=== PATIENT | female | born 1960 | race Caucasian/White ===

== ENCOUNTER 2017-10-07 20:39 | Emergency (ER) | payer BC, OTHER ==
[2017-10-07 20:40] VITALS: BMI 24.5
[2017-10-07 22:53] VITALS: TEMP 98.5
[2017-10-07] MEDS ORDERED: HYDROmorphone 1 mg/ml ISec IVP STA (23:40)
[2017-10-07] MEDS ORDERED: Sodium Chloride 0.9% 2,000 ML IV STA (23:40)
--- NOTE | 2017-10-07 23:55 | ED PDOC ---
Arrival/HPI - General Chief Complaint: Abdominal Pain Time Seen by Provider: 10/07/17 22:58 Historian: Patient - History of Present Illness Narrative History of Present Illness (Text): 10/07/17 23:55 A 57 year old female, whose past medical history includes cholecystectomy ( about 20 years ago), hyperlipidemia and hysterectomy, presents to the emergency department complaining of abdominal pain that started about 07:00 this morning and vomiting during the day. Patient reports more than 10 episodes of vomiting. Notes diarrhea after eating lunch. Patient reports chills but denies any other complaints at this time. Symptom Onset: Sudden Symptom Course: Unchanged Activities at Onset: Rest Context: Home Past Medical History - Provider Review Nursing Documentation Reviewed: Yes - Tetanus Immunization Tetanus Immunization: Unknown - Cardiac Hx Hypertension: Yes - Pulmonary Hx Asthma: Yes - Endocrine/Metabolic Other/Comment: BORDERLINE DM - Hematological/Oncological Hx Cancer: Yes (ovarian) - Gastrointestinal Hx Gall Bladder Disease: Yes - Psychiatric Hx Anxiety: Yes Hx Substance Use: No - Surgical History Hx Cholecystectomy: Yes Hx Hysterectomy: Yes Hx Orthopedic Surgery: Yes Hx Tonsillectomy: Yes - Suicidal Assessment Feels Threatened In Home Enviroment: No Family/Social History - Physician Review Nursing Documentation Reviewed: Yes Family/Social History: No Known Family HX Smoking Status: Never Smoked Hx Alcohol Use: Yes Frequency of alcohol use: Socially Hx Substance Use: No Hx Substance Use Treatment: No Allergies/Home Meds Allergies/Adverse Reactions: Allergies No Known Allergies Allergy (Verified 10/07/17 22:54) Home Medications: Home Meds Medication Instructions Recorded Confirmed Gabapentin [Neurontin] 300 mg PO TID 10/07/17 10/07/17 Ibuprofen [Motrin Tab] 800 mg PO Q6 PRN 10/07/17 10/07/17 Review of Systems - Physician Review All systems were reviewed & negative as marked: Yes - Review of Systems Constitutional: Other (chills) Gastrointestinal: Abdominal Pain, Diarrhea, Vomiting Physical Exam Vital Signs Reviewed: Yes Vital Signs Temp Pulse Resp BP Pulse Ox 10/08/17 01:41 79 18 127/77 96 10/07/17 23:59 94 H 20 113/82 97 10/07/17 22:46 98.5 F 101 H 19 125/84 100 Temperature: Afebrile Blood Pressure: Normal Pulse: Tachycardic Respiratory Rate: Normal Appearance: Positive for: Well-Appearing, Non-Toxic, Comfortable Pain Distress: None Mental Status: Positive for: Alert and Oriented X 3 - Systems Exam Head: Present: Atraumatic, Normocephalic Pupils: Present: PERRL Extroacular Muscles: Present: EOMI Conjunctiva: Present: Normal Mouth: Present: Moist Mucous Membranes Neck: Present: Normal Range of Motion Respiratory/Chest: Present: Clear to Auscultation, Good Air Exchange. No: Respiratory Distress, Accessory Muscle Use Cardiovascular: Present: Regular Rate and Rhythm, Normal S1, S2. No: Murmurs Abdomen: Present: Tenderness (diffuse), Other (exaggerated bowel sounds). No: Distention, Peritoneal Signs Back: Present: Normal Inspection Upper Extremity: Present: Normal Inspection. No: Cyanosis, Edema Lower Extremity: Present: Normal Inspection. No: Edema Neurological: Present: GCS=15, CN II-XII Intact, Speech Normal Skin: Present: Warm, Dry, Normal Color. No: Rashes Psychiatric: Present: Alert, Oriented x 3, Normal Insight, Normal Concentration Medical Decision Making ED Course and Treatment: 10/07/17 23:53 Impression: A 57 year old female with abdominal pain, vomiting and diarrhea. Plan: -- labs -- Dilaudid, Zofran, Toradol, IV fluids -- Reassess and disposition Progress Notes: 10/08/17 02:58 FEELING MUCH BETTER ABLE TO TOLERATE PO ABDOMEN NON TENDER WILL DC HOME WITH ZOFRAN Re-evaluation Time: 02:59 - Lab Interpretations Lab Results: 10/07/17 23:40 10/07/17 23:40 Lab Results 10/07/17 23:40: Sodium 139, Potassium 4.0, Chloride 105, Carbon Dioxide 21, Anion Gap 17, BUN 13, Creatinine 0.7, Est GFR ( Amer) > 60, Est GFR (Non- Af Amer) > 60, Random Glucose 107, Calcium 10.3, Total Bilirubin 1.6 H, Direct Bilirubin 0.5 H, AST 26, ALT 50, Alkaline Phosphatase 67, Total Protein 8.3, Albumin 4.5, Globulin 3.8, Albumin/Globulin Ratio 1.2, Lipase 55 10/07/17 23:40: PT 12.2, INR 1.07 10/07/17 23:40: WBC 6.0 D, RBC 5.25, Hgb 15.1, Hct 45.7, MCV 87.0, MCH 28.8, MCHC 33.0, RDW 14.0, Plt Count 202, MPV 10.1, Gran % 83.1 H, Lymph % (Auto) 11.9 L, Adams % (Auto) 4.6, Eos % (Auto) 0.2 L, Baso % (Auto) 0.2, Gran # 5.01, Lymph # 0.7 L, Adams # 0.3, Eos # 0.0, Baso # 0.01 10/07/17 23:18: Influenza Typ A,B (EIA) Negative for flu a/b I have reviewed the lab results: Yes - Medication Orders Current Medication Orders: Discontinued Medications Hydromorphone HCl (Dilaudid) 1 mg IVP STAT STA Stop: 10/07/17 23:41 Last Admin: 10/07/17 23:57 Dose: 1 mg MAR Pain Assessment Document 10/07/17 23:57 GMD (Rec: 10/07/17 23:57 GMD [facility] [id number]) Pain Reassessment Is this a pain reassessment? No Sleep Is patient sleeping during reassessment? No Presence of Pain Presence of Pain Yes Pain Scale Used Pain Scale Used Numeric IVP Administration Document 10/07/17 23:57 GMD (Rec: 10/07/17 23:57 GMD [facility] [id number]) Charges for Administration # of IVP Administrations 1 Sodium Chloride (Sodium Chloride 0.9%) 2,000 mls @ 999 mls/hr IV .Q2H1M STA Stop: 10/08/17 01:40 Last Admin: 10/07/17 23:57 Dose: 999 mls/hr eMAR Start Stop Document 10/07/17 23:57 GMD (Rec: 10/07/17 23:58 GMD [facility] [id number]) Intravenous Solution Start Date 10/07/17 Start Time 23:57 End Date 10/08/17 End time 01:57 Total Infusion Time 120 Ketorolac Tromethamine (Toradol) 30 mg IVP STAT STA Stop: 10/07/17 23:41 Last Admin: 10/07/17 23:57 Dose: 30 mg MAR Pain Assessment Document 10/07/17 23:57 GMD (Rec: 10/07/17 23:57 GMD [facility] [id number]) Pain Reassessment Is this a pain reassessment? No Sleep Is patient sleeping during reassessment? No Presence of Pain Presence of Pain Yes IVP Administration Document 10/07/17 23:57 GMD (Rec: 10/07/17 23:57 GMD [facility] [id number]) Charges for Administration # of IVP Administrations 1 Ondansetron HCl (Zofran Inj) 8 mg IVP STAT STA Stop: 10/07/17 23:41 Last Admin: 10/07/17 23:57 Dose: 8 mg IVP Administration Document 10/07/17 23:57 GMD (Rec: 10/07/17 23:57 GMD [facility] [id number]) Charges for Administration # of IVP Administrations 1 - PA / [employer] / Resident Statement / has reviewed & agrees with the documentation as recorded. - Scribe Statement The provider has reviewed the documentation as recorded by the Scribe Linsey Gama Provider Scribe Attestation: All medical record entries made by the Scribe were at my direction and personally dictated by me. I have reviewed the chart and agree that the record accurately reflects my personal performance of the history, physical exam, medical decision making, and the department course for this patient. I have also personally directed, reviewed, and agree with the discharge instructions and disposition. Disposition/Present on Arrival - Present on Arrival Any Indicators Present on Arrival: No History of DVT/PE: No History of Uncontrolled Diabetes: No Urinary Catheter: No History of Decub. Ulcer: No History Surgical Site Infection Following: None - Disposition Have Diagnosis and Disposition been Completed?: Yes Diagnosis: Viral gastroenteritis Disposition: HOME/ ROUTINE Disposition Time: 03:00 Patient Plan: Discharge Condition: GOOD Discharge Instructions (ExitCare): Gastroenteritis (ED) Additional Instructions: KADE- SORRY YOU ARE SO SICK. REST, PLENTY OF FLUIDS, ZOFRAN ODT for NAUSEA or VOMITING, FOLLOW UP WITH YOUR DOCTOR NEXT WEEK, RETURN TO US IF PROBLEMS. DYLL[address] Referrals: Brittani Batista DO [Primary Care Provider] - Follow up with primary Forms: [employer] (Kyrgyz)
[2017-10-08 00:10] LABS: BASO # 0.01 K/mm3 (0.0-2.0); BASO % 0.2 % (0.0-3.0); EOS % 0.2 % (1.5-5.0); GRAN # 5.01 (1.4-6.5); GRAN % 83.1 % (50.0-68.0); HEMOGLOBIN 15.1 g/dL (12.0-16.0); LYMPH # 0.7 (1.2-3.4); LYMPH % 11.9 % (22.0-35.0); MEAN CORPUSCULAR HEMOGLOBIN 28.8 pg (25.0-35.0); MEAN PLATELET VOLUME 10.1 fl (7.0-11.0); MONO # 0.3 (0.1-0.6); MONO % 4.6 % (1.0-6.0); RBC 5.25 10^6/uL (3.5-6.1)
[2017-10-08 00:18] LABS: ALB/GLOB RATIO 1.2 (1.1-1.8); ALBUMIN 4.5 g/dL (3.0-4.8); ALT/SGPT 50 U/L (7-56); AST/SGOT 26 U/L (14-36); BLOOD UREA NITROGEN 13 mg/dL (7-21); CALCIUM 10.3 mg/dL (8.4-10.5); GFR AFRICAN-AMERICAN > 60; GFR NON-AFRICAN AMERICAN > 60; LIPASE 55 U/L (23-300)
[2017-10-08 00:20] LABS: INR 1.07 (0.93-1.08); PROTHROMBIN TIME 12.2 SECONDS (9.4-12.5)
[2017-10-08 00:23] LABS: BILIRUBIN,DIRECT 0.5 mg/dL (0.0-0.4)
[2017-10-08 01:41] VITALS: O2SAT 96
[2017-10-08 03:02] VITALS: BP 118/79; PULSE 82; RESP 16
== END 2017-10-08 03:06 | disposition home or self-care (01) ==
LOC: ED 20:39
DX: A08.4 Viral intestinal infection, unspecified (principal); I10 Essential (primary) hypertension; E78.5 Hyperlipidemia, unspecified
CPT/HCPCS: 80053; 82248; 83690; 85025; 85610; 87804; 96361; 96374; 96375; 99285; J1170; J1885; J2405; J7040

== ENCOUNTER 2017-10-11 14:20 | Emergency (ER) | payer OTHER ==
[2017-10-11 14:21] VITALS: BMI 24.5
[2017-10-11 14:43] VITALS: TEMP 97.9
[2017-10-11] MEDS ORDERED: Sodium Chloride 0.9% 1,000 ML IV STA (14:56)
[2017-10-11] MEDS ORDERED: Iohexol 240 (50 ml) ONE (15:04)
--- NOTE | 2017-10-11 15:37 | ED PDOC ---
Arrival/HPI - General Chief Complaint: Abdominal Pain Time Seen by Provider: 10/11/17 14:22 Historian: Patient - History of Present Illness Narrative History of Present Illness (Text): 10/11/17 14:42 A 57 year old female, whose past medical history includes HLD, pre-diabetic, hysterectomy, chronic pain to toes (possible nerve problem and takes and cholecystectomy, presents to the emergency department complaining of dizziness, vomiting, and diarrhea for 4 days. Patient reports she visited the ER for similar symptoms and was given Zofran. States she has had no relief of symptoms. Patient went to visit her PMD but was not there. Instead, patient went to Urgent Care and had medication changed to Omeprazole, discontinued Zofran. Patient notes now experiencing black tarry stool and appetite changes. States she has not eaten very much since symptoms began and last food she ate was a slice of pizza today. Patient denies any vomiting at this time, or any other complaints. PMD: Dr. Batista Time/Duration: < week (4 days) Symptom Onset: Sudden Symptom Course: Unchanged Past Medical History - Provider Review Nursing Documentation Reviewed: Yes - Tetanus Immunization Tetanus Immunization: Unknown - Reproductive Menopause: Yes - Cardiac Hx Cardiac Disorders: Yes Hx Hypertension: Yes - Pulmonary Hx Respiratory Disorders: Yes Hx Asthma: Yes - Neurological Hx Neurological Disorder: Yes Other/Comment: NEUROPATHY - HEENT Hx HEENT Disorder: No - Renal Hx Renal Disorder: No - Endocrine/Metabolic Hx Endocrine Disorders: Yes Other/Comment: BORDERLINE DM - Hematological/Oncological Hx Cancer: Yes (ovarian) - Integumentary Hx Dermatological Disorder: No - Musculoskeletal/Rheumatological Hx Musculoskeletal Disorders: No - Gastrointestinal Hx Gastrointestinal Disorders: Yes Hx Gall Bladder Disease: Yes Hx Gastritis: Yes - Genitourinary/Gynecological Hx Genitourinary Disorders: No - Psychiatric Hx Psychophysiologic Disorder: Yes Hx Anxiety: Yes Hx Substance Use: No - Surgical History Hx Cholecystectomy: Yes Hx Hysterectomy: Yes Hx Orthopedic Surgery: Yes Hx Tonsillectomy: Yes - Suicidal Assessment Feels Threatened In Home Enviroment: No Family/Social History - Physician Review Nursing Documentation Reviewed: Yes Family/Social History: No Known Family HX Smoking Status: Never Smoked Hx Alcohol Use: Yes Hx Substance Use: No Hx Substance Use Treatment: No Allergies/Home Meds Allergies/Adverse Reactions: Allergies No Known Allergies Allergy (Verified 10/11/17 14:34) Home Medications: Home Meds Medication Instructions Recorded Confirmed Gabapentin [Neurontin] 300 mg PO TID 10/07/17 10/11/17 Ibuprofen [Motrin Tab] 800 mg PO Q6 PRN 10/07/17 10/11/17 Omeprazole [Omeprazole] 20 mg PO DAILY 10/11/17 10/11/17 Review of Systems - Physician Review All systems were reviewed & negative as marked: Yes - Review of Systems Gastrointestinal: Stool Changes (black tarry stool today), Diarrhea, Vomiting ( episodes of vomiting previously but currently not vomiting) Neurological: Dizziness Physical Exam Vital Signs Reviewed: Yes Vital Signs Temp Pulse Resp BP Pulse Ox 10/11/17 16:05 71 18 112/61 100 10/11/17 14:42 97.9 F 85 16 133/66 99 Temperature: Afebrile Blood Pressure: Normal Pulse: Regular Respiratory Rate: Normal Appearance: Positive for: Well-Appearing Pain Distress: None Mental Status: Positive for: Alert and Oriented X 3 - Systems Exam Head: Present: Atraumatic, Normocephalic Pupils: Present: PERRL Extroacular Muscles: Present: EOMI Conjunctiva: Present: Normal Mouth: Present: Moist Mucous Membranes Neck: Present: Normal Range of Motion Respiratory/Chest: Present: Clear to Auscultation, Good Air Exchange. No: Respiratory Distress, Accessory Muscle Use Cardiovascular: Present: Regular Rate and Rhythm, Normal S1, S2. No: Murmurs Abdomen: Present: Normal Bowel Sounds. No: Tenderness, Distention, Peritoneal Signs Back: Present: Normal Inspection Upper Extremity: Present: Normal Inspection. No: Cyanosis, Edema Lower Extremity: Present: Normal Inspection. No: Edema Neurological: Present: GCS=15, CN II-XII Intact, Speech Normal Skin: Present: Warm, Dry, Normal Color. No: Rashes Psychiatric: Present: Alert, Oriented x 3, Normal Insight, Normal Concentration Medical Decision Making ED Course and Treatment: 10/11/17 14:46 Impression: 57 year old female with diarrhea and dizziness. Normal physical exam ; rectal exam shows Plan: -- Abd/Pelvis CT -- Labs -- Protonix -- IV Fluids -- Occult Blood Urinalysis -- Reassess and disposition Prior Visits: Notes and results from previous visits were reviewed. Patient was last seen in the emergency department on 10/07/2017 for abdominal pain. Patient was d/c home. Progress Notes: 10/11/2017 19:44 Abd/Pelvis CT IMPRESSION: 1. No definite acute intraabdominal abnormality. 2. Adrenal lesion, indeterminate. If no history of malignancy, recommend surgical resection. Otherwise, PET or biopsy is recommended. Consider preoperative biochemical testing to exclude pheochromocytoma. Dictator: Bienvenido Boles MD - Lab Interpretations Lab Results: 10/11/17 15:20 10/11/17 15:20 Lab Results 10/11/17 17:30: Blood Type Confirm O POSITIVE 10/11/17 15:20: Blood Type O POSITIVE, Antibody Screen Negative, BBK History Checked No verified bt 10/11/17 15:20: Sodium 142, Potassium 3.1 L, Chloride 110 H, Carbon Dioxide 23, Anion Gap 12, BUN 13, Creatinine 0.6 L, Est GFR ( Amer) > 60, Est GFR ( Non-Af Amer) > 60, Random Glucose 97, Calcium 9.6, Total Bilirubin 0.7, AST 59 H D, ALT 101 H, Alkaline Phosphatase 49, Total Protein 6.7, Albumin 3.7, Globulin 3.0, Albumin/Globulin Ratio 1.2, Lipase 190 10/11/17 15:20: PT 11.6, INR 1.02 10/11/17 15:20: WBC 3.7 L D, RBC 4.97, Hgb 13.9, Hct 43.8, MCV 88.1, MCH 28.0, MCHC 31.7, RDW 13.7, Plt Count 180, MPV 10.3, Gran % 60.0, Lymph % (Auto) 29.4, Benson % (Auto) 9.0 H, Eos % (Auto) 0.8 L, Baso % (Auto) 0.8, Gran # 2.20, Lymph # 1.1 L, Benson # 0.3, Eos # 0.0, Baso # 0.03 I have reviewed the lab results: Yes - RAD Interpretation Radiology Orders: 10/11/17 14:57 ABDOMEN & PELVIS [ABD PELVIS PO & IV CONTRAST] [CT] Stat - Medication Orders Current Medication Orders: Discontinued Medications Sodium Chloride (Sodium Chloride 0.9%) 1,000 mls @ 999 mls/hr IV .Q1H1M STA Stop: 10/11/17 15:56 Last Admin: 10/11/17 15:43 Dose: 999 mls/hr eMAR Start Stop Document 10/11/17 15:43 RG (Rec: 10/11/17 15:[address] [id number] Intravenous Solution Start Date 10/11/17 Start Time 15:43 Pantoprazole Sodium (Protonix Inj) 40 mg IVP STAT STA Stop: 10/11/17 14:57 Last Admin: 10/11/17 15:22 Dose: 40 mg IVP Administration Document 10/11/17 15:22 RG (Rec: 10/11/17 15:[address] [id number] Charges for Administration # of IVP Administrations 1 Potassium Chloride (Klor-Con 10) 40 meq PO STAT STA Stop: 10/11/17 18:14 Last Admin: 10/11/17 18:52 Dose: 40 meq - PA / [employer]ICIAN / Resident Statement MD/DO has reviewed & agrees with the documentation as recorded. - Scribe Statement The provider has reviewed the documentation as recorded by the Chang Light Provider Scribe Attestation: All medical record entries made by the Chang were at my direction and personally dictated by me. I have reviewed the chart and agree that the record accurately reflects my personal performance of the history, physical exam, medical decision making, and the department course for this patient. I have also personally directed, reviewed, and agree with the discharge instructions and disposition. Disposition/Present on Arrival - Present on Arrival Any Indicators Present on Arrival: No History of DVT/PE: No History of Uncontrolled Diabetes: No Urinary Catheter: No History of Decub. Ulcer: No History Surgical Site Infection Following: None - Disposition Have Diagnosis and Disposition been Completed?: Yes Diagnosis: Lesion of adrenal gland, Gastroenteritis Disposition: HOME/ ROUTINE Disposition Time: 06:00 Patient Plan: Discharge Condition: GOOD Discharge Instructions (ExitCare): Gastroenteritis (ED) Additional Instructions: buddy - Take the copies of your labs and your CT scan to your doctor on Saturday. Return to us if worse or new symptoms occur. You are not bleeding through your stool, I am not certain why your stools are black. Sometimes of you take peptobismol it can turn your stools black. On the CT scan they saw a spot on your adrenal gland that needs worked up as an outpatient. That is why you are going to see your doctor on Saturday. Continue the pepcid and you can use the Zofran if you feel nauseated. Clear liquids or broth this weekend until you see your doctor on saturday. Best- Dr. Samson Coleman Referrals: Brittani Batista V, [Primary Care Provider] - Follow up with primary Forms: [employer] (Kazakh)
[2017-10-11 16:06] VITALS: BP 112/61; PULSE 71; RESP 18; O2SAT 100
[2017-10-11 16:12] LABS: BASO # 0.03 K/mm3 (0.0-2.0); BASO % 0.8 % (0.0-3.0); EOS % 0.8 % (1.5-5.0); GRAN # 2.2 (1.4-6.5); HEMOGLOBIN 13.9 g/dL (12.0-16.0); LYMPH # 1.1 (1.2-3.4); LYMPH % 29.4 % (22.0-35.0); MEAN CELL VOLUME 88.1 fl (80.0-105.0); MEAN CORPUSCULAR HGB CONC 31.7 g/dl (31.0-37.0); MEAN PLATELET VOLUME 10.3 fl (7.0-11.0); MONO # 0.3 (0.1-0.6); RBC 4.97 10^6/uL (3.5-6.1); RED CELL DISTRIBUTION WIDTH 13.7 % (11.5-14.5); WHITE BLOOD COUNT 3.7 10^3/ul (4.5-11.0)
[2017-10-11 16:17] LABS: ALB/GLOB RATIO 1.2 (1.1-1.8); ALBUMIN 3.7 g/dL (3.0-4.8); ALT/SGPT 101 U/L (7-56); AST/SGOT 59 U/L (14-36); BLOOD UREA NITROGEN 13 mg/dL (7-21); CALCIUM 9.6 mg/dL (8.4-10.5); GFR AFRICAN-AMERICAN > 60; GFR NON-AFRICAN AMERICAN > 60; LIPASE 190 U/L (23-300)
[2017-10-11 16:49] LABS: INR 1.02 (0.93-1.08); PROTHROMBIN TIME 11.6 SECONDS (9.4-12.5)
[2017-10-11] MEDS ORDERED: Iohexol 350 MG/100 ML VIAL ONE (17:14)
[2017-10-11] MEDS ORDERED: Potassium Chloride 10 mEq ER Tab PO STA (18:13)
--- NOTE | 2017-10-11 19:44 | CT ---
EXAM: CT Abdomen and Pelvis With Intravenous Contrast CLINICAL HISTORY: 57 years old, female; Pain; Abdominal pain; Epigastric; Additional info: R/O obstruction, black stools, epigastric pain TECHNIQUE: Axial computed tomography images of the abdomen and pelvis with intravenous contrast. All CT scans at this facility use one or more dose reduction techniques, viz.: automated exposure control; ma/kV adjustment per patient size (including targeted exams where dose is matched to indication; i.e. head); or iterative reconstruction technique. Coronal and sagittal reformatted images were created and reviewed. CONTRAST: 100 mL of omni administered intravenously. COMPARISON: No relevant prior studies available. FINDINGS: Lower thorax: Minimal atelectasis. ABDOMEN: Liver: Fatty infiltration. Gallbladder and bile ducts: Cholecystectomy. No significant ductal dilation. Pancreas: No ductal dilation. No mass. Spleen: No splenomegaly. Adrenals: 3.7 x 3.3 x 5.1 cm lesion within RIGHT adrenal gland, indeterminate by CT criteria. Kidneys and ureters: No mass. No hydronephrosis. Stomach and bowel: No definite mural thickening. No obstruction. Appendix: Normal caliber. No inflammation. PELVIS: Bladder: Unremarkable. Reproductive: Hysterectomy. ABDOMEN and PELVIS: Intraperitoneal space: No significant fluid collection. No free air. Bones/joints: No acute fracture. Soft tissues: Tiny umbilical hernia containing fat. Vasculature: Mild atherosclerotic disease. No aneurysm. Lymph nodes: No pathologically enlarged lymph nodes. IMPRESSION: 1. No definite acute intraabdominal abnormality. 2. Adrenal lesion, indeterminate. If no history of malignancy, recommend surgical resection. Otherwise, PET or biopsy is recommended. Consider preoperative biochemical testing to exclude pheochromocytoma. 3. Incidental/non-acute findings are described above.
== END 2017-10-11 20:54 | disposition home or self-care (01) ==
LOC: ED 14:20
DX: K52.9 Noninfective gastroenteritis and colitis, unspecified (principal); E27.9 Disorder of adrenal gland, unspecified; I10 Essential (primary) hypertension
CPT/HCPCS: 74177; 80053; 83690; 85025; 85610; 86850; 86900; 96374; 99285; C9113; J7040; Q9966; Q9967